=== PATIENT | female | born 1975 | race Two or more races ===

== ENCOUNTER 2017-03-29 16:26 | Inpatient (IN) | payer MEDICAID ==
[~2017-03-29] VITALS: Ht 162.6 cm; Wt 75.3 kg
[2017-03-29 17:37] LABS: Basophils # (auto) 0.1 uL; Basophils % (auto) 0.5 % (0.0-2.0); Eosinophils # (auto) 0.3 uL; Eosinophils % (auto) 2.2 % (0.0-7.0); Hematocrit 42.9 % (36.0-46.0); Hemoglobin 14.1 g/dL (12.2-16.2); Lymphocytes # (auto) 2.6 uL; Lymphocytes % (auto) 19.4 % (10.0-50.0); Mean Corpuscular Hemoglobin 28.5 pg (28.0-32.0); Mean Corpuscular Hgb Conc. 32.8 g/dL (32.0-36.0); Mean Corpuscular Volume 86.8 fL (80.0-100.0); Monocytes # (auto) 1.2 uL; Monocytes % (auto) 8.7 % (0.0-12.0); Neutrophils # (auto) 9.2 uL; Neutrophils % (auto) 69.2 % (37.0-80.0); Platelet Count (auto) 359 10^3/uL (140-450); Red Blood Cells 4.94 10^6/uL (4.0-5.20); Red Cell Distribution Width 13.8 % (11.8-14.3); White Blood Cell 13.2 10^3/uL (4.4-10.8)
[2017-03-29 17:53] LABS: Albumin 3.7 g/dL (3.4-5.0); Calcium 9.2 mg/dL (8.5-10.1); Potassium 3.4 mmol/L (3.5-5.1)
[2017-03-29 18:02] LABS: Bilirubin, Total 0.3 mg/dL (0.2-1.0); Total Protein 8.1 g/dL (6.4-8.2)
[2017-03-29] MEDS ORDERED: ONDANSETRON HCL 4 MG/2 ML VIAL IV ONE (19:00)
[2017-03-29] MEDS ORDERED: MORPHINE SULFATE 10 MG/ML INJ 1ML SDV IV ONE (19:00)
[2017-03-29] MEDS ORDERED: SODIUM CHLORIDE 0.9% 1,000 ML IV ONE ×3 (19:00→19:16)
[2017-03-29] MEDS ORDERED: cefTRIAXone 1GM/50ML D5W 50 ML IV ONE (19:30)
[2017-03-29 19:35] LABS: Urine Bacteria NONE SEEN /hpf (None Seen); Urine Blood Negative /uL (Negative); Urine Mucus FEW (None Seen); Urine Specific Gravity 1.025 (1.001-1.035); Urine WBC 4 /hpf (0 - 5)
[2017-03-29] MEDS ORDERED: POTASSIUM CHL 10 Meq TABLET PO ONE (22:00)
[2017-03-29] MEDS ORDERED: metroNIDAZOLE 500MG/100ML 100 ML IV ONE (22:15)
[2017-03-29] MEDS: SODIUM CHLORIDE 0.9% 1,000 ML IV SCH (22:26)
[2017-03-30] VITALS (7 sets, daily range): BP systolic 95–115; BP diastolic 53–70
[2017-03-30] MEDS: MORPHINE SULFATE 10 MG/ML INJ 1ML SDV IV PRN ×5 (00:33→21:43)
[2017-03-30] MEDS ORDERED: INFLUENZA QUAD 2017-2018 0.5 ML SYRG IM ONE ×2 (01:15→01:30)
[2017-03-30] MEDS ORDERED: DIPH25CA66 PO (01:19)
[2017-03-30] MEDS: metroNIDAZOLE 500MG/100ML 100 ML IV SCH ×3 (05:20→21:24)
[2017-03-30] MEDS: SODIUM CHLORIDE 0.9% 1,000 ML IV SCH ×3 (05:29→21:44)
[2017-03-30 07:34] LABS: Basophils # (auto) 0.1 uL; Basophils % (auto) 0.6 % (0.0-2.0); Eosinophils # (auto) 0.2 uL; Hematocrit 35.5 % (36.0-46.0); Hemoglobin 11.9 g/dL (12.2-16.2); Lymphocytes % (auto) 17.9 % (10.0-50.0); Mean Corpuscular Hemoglobin 29.6 pg (28.0-32.0); Mean Corpuscular Hgb Conc. 33.7 g/dL (32.0-36.0); Mean Corpuscular Volume 87.8 fL (80.0-100.0); Monocytes # (auto) 0.8 uL; Monocytes % (auto) 6.7 % (0.0-12.0); Neutrophils # (auto) 8.1 uL; Neutrophils % (auto) 72.8 % (37.0-80.0); Nucleated Red Blood Cells % 0.1 %; Platelet Count (auto) 287 10^3/uL (140-450); Red Blood Cells 4.04 10^6/uL (4.0-5.20); Red Cell Distribution Width 13.8 % (11.8-14.3); White Blood Cell 11.2 10^3/uL (4.4-10.8)
[2017-03-30 07:52] LABS: INR 0.95 (0.9-1.15); Partial Thromboplastin Time 22.6 sec (22.64-33.71); Prothrombin Time 10.4 sec (9.37-12.3)
[2017-03-30 07:55] LABS: Calcium 8.1 mg/dL (8.5-10.1); Potassium 3.6 mmol/L (3.5-5.1)
[2017-03-30] MEDS: cefTRIAXone 1GM/50ML D5W 50 ML IV SCH (09:41)
[2017-03-30] MEDS ORDERED: LORazepam 0.5 MG TAB PO ONE (10:30)
[2017-03-30] MEDS: HYDROcodone-ACET 5/325MG TAB PO PRN ×2 (13:32→20:49)
[2017-03-30] MEDS: ONDANSETRON HCL 4 MG/2 ML VIAL IV PRN (19:24)
[2017-03-31] MEDS: MORPHINE SULFATE 10 MG/ML INJ 1ML SDV IV PRN ×2 (02:11→06:17)
[2017-03-31 05:21] VITALS: BP 104/68
[2017-03-31] MEDS: SODIUM CHLORIDE 0.9% 1,000 ML IV SCH ×3 (05:49→22:04)
[2017-03-31] MEDS: metroNIDAZOLE 500MG/100ML 100 ML IV SCH ×3 (05:49→22:28)
[2017-03-31 07:06] LABS: Basophils # (auto) 0 uL; Basophils % (auto) 0.2 % (0.0-2.0); Eosinophils # (auto) 0.2 uL; Eosinophils % (auto) 1.6 % (0.0-7.0); Hematocrit 36.3 % (36.0-46.0); Hemoglobin 12.2 g/dL (12.2-16.2); Lymphocytes # (auto) 1.3 uL; Lymphocytes % (auto) 14.1 % (10.0-50.0); Mean Corpuscular Hgb Conc. 33.6 g/dL (32.0-36.0); Mean Corpuscular Volume 86.3 fL (80.0-100.0); Monocytes # (auto) 0.8 uL; Neutrophils # (auto) 7.2 uL; Neutrophils % (auto) 76.1 % (37.0-80.0); Nucleated Red Blood Cells % 0.1 %; Platelet Count (auto) 296 10^3/uL (140-450); Red Blood Cells 4.21 10^6/uL (4.0-5.20); Red Cell Distribution Width 13.5 % (11.8-14.3); White Blood Cell 9.5 10^3/uL (4.4-10.8)
[2017-03-31 07:32] LABS: Magnesium 2.1 mg/dL (1.6-2.6); Potassium 3.4 mmol/L (3.5-5.1)
[2017-03-31] MEDS ORDERED: fentaNYL CITRATE 100 MCG/2 ML VL ONE (07:41)
[2017-03-31] MEDS ORDERED: ONDANSETRON HCL 4 MG/2 ML VIAL ONE (07:41)
[2017-03-31] MEDS ORDERED: ROCURONIUM 10MG/ML 10ML VIAL IV ONE (07:41)
[2017-03-31] MEDS ORDERED: MEPERIDINE HCL (50 MG/ML) 1 ML VIAL ONE (07:41)
[2017-03-31] MEDS ORDERED: MIDAZOLAM HCL 1MG/1ML-2 ML VIAL ONE (07:41)
[2017-03-31] MEDS ORDERED: PROPOFOL 10 MG/ML 20 ML IV ONE (07:41)
[2017-03-31 08:30] VITALS: BP 95/58
[2017-03-31] MEDS ORDERED: HYDROmorphone HCL 2 MG/ML VL IV PRN (08:45)
[2017-03-31] MEDS ORDERED: KETOROLAC TROMETH 30 MG/ML 1ML VIAL IV ONE (08:45)
[2017-03-31] MEDS ORDERED: METOCLOPRAMIDE HCL 5MG/ml INJ 2ml VIAL IV ONE (08:45)
[2017-03-31] MEDS ORDERED: ceFAZolin 1GM/50ML 50 ML IV ONE (08:50)
[2017-03-31] MEDS ORDERED: KETOROLAC TROMETH 60MG/2ML VIAL IM ONE (09:12)
[2017-03-31] MEDS ORDERED: NEOSTIGMINE 1 MG/ML INJ (10mg/10ML VIAL) ONE (09:12)
[2017-03-31] MEDS ORDERED: GLYCOPYRROLATE 0.2 MG/ML 1ML VIAL ONE (09:12)
[2017-03-31] MEDS ORDERED: POTASSIUM CHL 20MEQ/50ML 50 ML IV ONE (12:45)
[2017-03-31 13:12] VITALS: BP 104/67
[2017-03-31] MEDS: cefTRIAXone 1GM/50ML D5W 50 ML IV SCH (15:39)
[2017-03-31] MEDS: HYDROmorphone HCL 2 MG/ML VL IV PRN ×2 (15:51→20:08)
[2017-03-31 17:09] VITALS: BP 107/73
[2017-03-31] MEDS: ONDANSETRON HCL 4 MG/2 ML VIAL IV PRN (19:13)
[2017-03-31] MEDS: HYDROcodone-ACET 5/325MG TAB PO PRN (19:43)
[2017-03-31 22:00] VITALS: BP 97/66
[2017-04-01] MEDS: HYDROmorphone HCL 2 MG/ML VL IV PRN ×5 (02:24→20:20)
[2017-04-01] MEDS: HYDROcodone-ACET 5/325MG TAB PO PRN ×2 (03:57→16:53)
[2017-04-01 05:00] VITALS: BP 109/79
[2017-04-01] MEDS: metroNIDAZOLE 500MG/100ML 100 ML IV SCH ×3 (05:37→21:51)
[2017-04-01] MEDS: SODIUM CHLORIDE 0.9% 1,000 ML IV SCH ×3 (05:38→21:51)
[2017-04-01 07:10] LABS: Basophils # (auto) 0 uL; Basophils % (auto) 0.3 % (0.0-2.0); Eosinophils # (auto) 0.1 uL; Eosinophils % (auto) 1.9 % (0.0-7.0); Hematocrit 35.7 % (36.0-46.0); Hemoglobin 11.9 g/dL (12.2-16.2); Lymphocytes # (auto) 1.4 uL; Lymphocytes % (auto) 18.7 % (10.0-50.0); Mean Corpuscular Hgb Conc. 33.4 g/dL (32.0-36.0); Mean Corpuscular Volume 86.8 fL (80.0-100.0); Monocytes # (auto) 0.5 uL; Monocytes % (auto) 6.8 % (0.0-12.0); Neutrophils # (auto) 5.3 uL; Neutrophils % (auto) 72.3 % (37.0-80.0); Platelet Count (auto) 289 10^3/uL (140-450); Red Blood Cells 4.11 10^6/uL (4.0-5.20); Red Cell Distribution Width 13.2 % (11.8-14.3); White Blood Cell 7.4 10^3/uL (4.4-10.8)
[2017-04-01 07:16] LABS: BUN/Creatinine Ratio 10.7; Calcium 8.2 mg/dL (8.5-10.1); Potassium 3.2 mmol/L (3.5-5.1)
[2017-04-01 09:00] VITALS: BP 107/73
[2017-04-01] MEDS ORDERED: POTASSIUM CHL 20MEQ/50ML 50 ML IV SCH (10:45)
[2017-04-01] MEDS: ONDANSETRON HCL 4 MG/2 ML VIAL IV PRN (10:50)
[2017-04-01] MEDS: cefTRIAXone 1GM/50ML D5W 50 ML IV SCH (11:11)
[2017-04-01 13:00] VITALS: BP 115/77
[2017-04-01] MEDS ORDERED: POTASSIUM CHL 20 Meq TABLET PO ONE (14:15)
[2017-04-01 16:39] VITALS: BP 118/71
[2017-04-01 20:00] VITALS: BP 100/62
[2017-04-01 22:00] VITALS: BP 100/62
[2017-04-01] MEDS: ACETAMINOPHEN 500 MG TAB PO PRN (23:27)
[2017-04-02] MEDS: HYDROmorphone HCL 2 MG/ML VL IV PRN ×3 (00:33→11:48)
[2017-04-02] MEDS: ONDANSETRON HCL 4 MG/2 ML VIAL IV PRN ×3 (00:41→12:01)
[2017-04-02 05:00] VITALS: BP 120/76
[2017-04-02] MEDS: metroNIDAZOLE 500MG/100ML 100 ML IV SCH ×3 (06:20→21:02)
[2017-04-02 06:36] LABS: Hematocrit 35.8 % (36.0-46.0); Hemoglobin 12.1 g/dL (12.2-16.2)
[2017-04-02] MEDS: SODIUM CHLORIDE 0.9% 1,000 ML IV SCH (07:00)
[2017-04-02 08:00] VITALS: BP 118/76
[2017-04-02] MEDS: cefTRIAXone 1GM/50ML D5W 50 ML IV SCH (08:45)
[2017-04-02] MEDS: HYDROcodone-ACET 5/325MG TAB PO PRN ×3 (08:45→21:02)
[2017-04-02 09:00] VITALS: BP 118/76
[2017-04-02] MEDS ORDERED: LACTULOSE 20Gm/30ML SOLN PO PRN (10:45)
[2017-04-02] MEDS ORDERED: HYDR-4683 PO (12:13)
[2017-04-02] MEDS ORDERED: METR500T PO (12:13)
[2017-04-02] MEDS ORDERED: LEVO500T21 PO (12:13)
[2017-04-02] MEDS ORDERED: POTASSIUM CHL 20 Meq TABLET PO ONE (12:15)
[2017-04-02 13:00] VITALS: BP 121/83
[2017-04-02 17:39] VITALS: BP 127/90
[2017-04-02] MEDS ORDERED: TEMAZEPAM 15 MG CAP PO ONE (20:45)
[2017-04-02 22:00] VITALS: BP 129/88
[2017-04-03] MEDS: HYDROcodone-ACET 5/325MG TAB PO PRN ×2 (03:00→09:50)
[2017-04-03 05:00] VITALS: BP 94/58
[2017-04-03] MEDS: metroNIDAZOLE 500MG/100ML 100 ML IV SCH ×2 (05:22→14:00)
[2017-04-03] MEDS ORDERED: KETOROLAC TROMETH 30 MG/ML 1ML VIAL IV ONE (05:30)
[2017-04-03] MEDS: ACETAMINOPHEN 500 MG TAB PO PRN (05:33)
[2017-04-03 06:27] LABS: Basophils # (auto) 0.1 uL; Basophils % (auto) 0.9 % (0.0-2.0); Eosinophils # (auto) 0.3 uL; Eosinophils % (auto) 4.5 % (0.0-7.0); Hematocrit 37.6 % (36.0-46.0); Hemoglobin 12.6 g/dL (12.2-16.2); Lymphocytes # (auto) 1.4 uL; Lymphocytes % (auto) 20.1 % (10.0-50.0); Mean Corpuscular Hemoglobin 28.9 pg (28.0-32.0); Mean Corpuscular Hgb Conc. 33.5 g/dL (32.0-36.0); Mean Corpuscular Volume 86.3 fL (80.0-100.0); Monocytes # (auto) 0.6 uL; Neutrophils # (auto) 4.7 uL; Neutrophils % (auto) 66.5 % (37.0-80.0); Platelet Count (auto) 316 10^3/uL (140-450); Red Blood Cells 4.36 10^6/uL (4.0-5.20); Red Cell Distribution Width 13.5 % (11.8-14.3); White Blood Cell 7.1 10^3/uL (4.4-10.8)
[2017-04-03 06:54] LABS: Potassium 3.6 mmol/L (3.5-5.1)
[2017-04-03 07:00] LABS: Albumin 2.8 g/dL (3.4-5.0); BUN/Creatinine Ratio 8.5; Calcium 8.5 mg/dL (8.5-10.1)
[2017-04-03 07:03] LABS: Bilirubin, Total 0.2 mg/dL (0.2-1.0); Total Protein 6.3 g/dL (6.4-8.2)
[2017-04-03 08:00] VITALS: BP 125/67
[2017-04-03 09:00] VITALS: BP 125/67
[2017-04-03] MEDS: cefTRIAXone 1GM/50ML D5W 50 ML IV SCH (09:50)
[2017-04-03] MEDS ORDERED: IOHEXOL 350 MG/ML 100ML IJ ONE (10:51)
[2017-04-03 13:00] VITALS: BP 146/85
[2017-04-03 13:20] VITALS: BP 146/85
[2017-04-03] MEDS ORDERED: INFLUENZA QUAD 2017-2018 0.5 ML SYRG IM ONE (14:15)
== END 2017-04-03 15:45 | disposition home or self-care (01) | DRG 710 ==
LOC: ER 16:38 → OVERFLOW 16:39 → CENTRAL 23:27
PROVIDERS: ADMIT Nurse Practitioner Family; ATTEND Internal Medicine
PROC: 0FT44ZZ Resection of Gallbladder, Percutaneous Endoscopic Approach (ICD-10-PCS; principal; 2017-03-31 08:55)
DX: A41.9 Sepsis, unspecified organism (principal); K80.00 Calculus of gallbladder with acute cholecystitis without obstruction; K76.0 Fatty (change of) liver, not elsewhere classified; E87.6 Hypokalemia; N73.6 Female pelvic peritoneal adhesions (postinfective); Z23 Encounter for immunization
CPT/HCPCS: 36415; 71010; 74176; 76705; 80048; 80053; 81001; 82247; 83690; 83735; 84132; 84702; 85014; 85018; 85025; 85379; 85610; 85730; 86850; 86900; 86901; 87040; 93005; 96361; 96365; 96367; 96375; J0690; J0696; J1885; J2250; J2405; J2704; J3490